=== PATIENT | female | born 1995 | race Caucasian/White ===

== ENCOUNTER 2020-07-29 20:56 | Emergency (ER) | payer SELFPAY ==
[2020-07-29 21:03] VITALS: BP 123/74; PULSE 100; RESP 16; TEMP 36.8; O2SAT 100; BMI 43.4
--- NOTE | 2020-07-29 21:19 | W.ED.GENADLT ---
HPI - General Adult General: Chief complaint: Fever Stated complaint: fever/n/v/d Time Seen by Provider: 07/29/20 21:13 History of Present Illness: HPI narrative: This pleasant young female said that she has had some nausea since 12:00 yesterday has had some diarrhea and vomited a couple times. Feeling better presently. Said her mom had something similar to this last week and her son had earlier this week. Patient also needs note for work. MD complaint: Diarrhea and nausea. Onset (ago): hour(s) Severity scale (1-10): 1 Associated symptoms: Reports nausea and vomiting; Deny chest pain, dyspnea, headache(s) or rash Review of Systems Const: Denies: fever(s), chills or body aches Eyes: Denies: change in vision or blurry vision ENMT: Denies: throat pain or nasal congestion Card: Denies: chest pain or dyspnea on exertion Resp: Denies: dyspnea, productive cough or non-productive cough GI: Reports: nausea, vomiting and diarrhea; Denies: abdominal pain Musc: Denies: extremity pain Skin/Breast: Denies: rash Neuro: Denies: headache(s) Psych: Denies: anxiety or depression Wilfrido/Lymph: Denies: easy bruising Physical Exam Const: COMMON NORMALS: no acute distress, average body habitus and patient oriented x3 HENMT: COMMON NORMALS: normocephalic HEAD & SCALP: normal to inspection and normocephalic FACE & SINUS: normal facial exam Eye: COMMON NORMALS: conjunctivae normal GENERAL EYE: appearance normal, both eyes and all related structures CONJUNCTIVA: Yes conjunctivae normal Neck/C-Spine: COMMON NORMALS: no JVD Chest: COMMONS NORMALS: normal inspection of the chest Resp: COMMON NORMALS: normal respiratory effort and clear to auscultation bilaterally AUSCULTATION: clear to auscultation bilaterally Cardio: COMMON NORMALS: no JVD, regular rate and regular rhythm RATE: regular rate RHYTHM: regular rhythm GI: COMMON NORMALS: Normal to inspection, nondistended, normoactive bowel sounds present Extremity: COMMON NORMALS: normal to inspection and full ROM Neuro: COMMON NORMALS: patient oriented x3 Course Vital Signs: Vital signs: Vital Signs Temperature 98.3 F 07/29/20 21:03 Pulse Rate 100 07/29/20 21:03 Respiratory Rate 16 07/29/20 21:03 Blood Pressure 123/74 07/29/20 21:03 Pulse Oximetry 100 07/29/20 21:03 Discharge Plan Discharge Patient Disposition: Home Clinical Impression: Gastroenteritis Condition: Stable Prescriptions: New Zofran 4 mg tablet 4 mg PO Q8H 3 Days Qty: 9 RF: 0 Discharge Orders: Discharge ED (Routine); Ordered 07/29/20 Ordered By: Niall Gibbs Discharge Diet: Advance as tolerated Discharge Activity: Increase activity as tolerated Patient Instructions: Gastroenteritis (ED) Activity Restrictions/Additional Instructions: Follow-up with medical provider as directed. Take medications as prescribed. Return to the ER or your medical provider if condition worsens. Please read and understand discharge instructions. If any questions ask please. Practice good handwashing technique. Stand Alone Forms: Work/School Release Coding Level of Care Code ED In Home Nanny for Lazaro Phoenix
[2020-07-29 21:45] VITALS: BP 132/72; PULSE 78; RESP 16; TEMP 36.7; O2SAT 97
[2020-07-29] MEDS: promethazine 25 mg/mL SDV 1 mL IM (22:05)
[2020-07-29] MEDS: loperamide 2 mg Capsule 4 MG PO (22:06)
[2020-07-29 22:07] VITALS: BP 128/68; PULSE 78; RESP 16; TEMP 36.7; O2SAT 96
== END 2020-07-29 21:55 | disposition home or self-care (01) ==
PROVIDERS: Emergency Provider Nurse Practitioner Family
DX: K52.9 Noninfective gastroenteritis and colitis, unspecified (principal)
CPT/HCPCS: 96372; 99283; J2550

== ENCOUNTER → 2021-06-16 11:53 | Outpatient (BNVA) | payer BC, SELFPAY | PROVIDERS: Visit Provider Nurse Practitioner Family | DX: R30.0 Dysuria (principal); N91.1 Secondary amenorrhea; N76.0 Acute vaginitis; B96.89 Other specified bacterial agents as the cause of diseases classified elsewhere; B37.9 Candidiasis, unspecified | CPT/HCPCS: 87491; 87591; 87661 ==

== ENCOUNTER 2021-07-26 21:27 | Emergency (ER) | payer BC, MEDICAID, SELFPAY ==
[2021-07-26 21:47] VITALS: BMI 46.0
[2021-07-26 21:51] VITALS: BP 129/85; PULSE 84; RESP 17; TEMP 37; O2SAT 97
[2021-07-26 22:23] LABS: HCG Qualitative Urine. Negative (Negative)
[2021-07-26 22:27] LABS: Add Urine Microscopic? YES; Bilirubin Urine Neg (Negative); Blood Urine 2+ (Negative); Glucose Urine UA Norm (Normal); Ketones Urine Negative (Negative); Leukocyte Esterase Urine Negative (Negative); Nitrate Urine Negative (Negative); Protein Urine Neg (Negative); Specific Gravity, Urine 1.025 (1.005-1.030); Urine Appearance Clear (CLEAR); Urine Color Yellow (Yellow); Urobilinogen Urine Norm (Negative); pH Urine 6 (5-7)
[2021-07-26 22:28] LABS: Add Urine Culture? No; Bacteria Urine TRACE /hpf; RBC Urine 0-4 /hpf (0-2); Squamous Epithelial Cell Urine 0-4 /hpf (0-5); WBC Urine 0-4 /hpf (0-5)
[2021-07-26] MEDS: pantoprazole DR 40 mg Tablet PO (23:09)
--- NOTE | 2021-07-31 08:38 | ED_ITS ---
HPI - Abdominal Pain General: Chief Complaint: Abdominal Pain Stated Complaint: abd pain, n/v Time Seen by Provider: 07/26/21 22:47 History of Present Illness: Patient with a history of reflux comes in with upper epigastric pain that is been going on for a few months. Not related to diet. Has taken htoi-[id number]-[id number] reflux medication with some relief. Denies any fever chills nausea or vomiting. Associated Symptoms: Reports heartburn; Denies chills, fever(s), nausea and vomiting Related Data: Date of Last Menstrual Period: 07/14/21 Review of Systems Const: Denies: fever(s), chills or body aches Eyes: Denies: eye discomfort ENMT: Denies: throat pain Card: Denies: chest pain Resp: Denies: dyspnea GI: Reports: heartburn; Denies: abdominal pain, nausea or vomiting Skin/Breast: Denies: rash Neuro: Denies: headache(s) Psych: Denies: depression or suicidal ideation [facility] ED Female Reproductive History: Date of last menstrual period: 07/14/21 Physical Exam Const: COMMON NORMALS: no acute distress, patient oriented x3 and alert HENMT: COMMON NORMALS: normocephalic and external ears normal HEAD & SCALP: normocephalic EXTERNAL EAR: Yes external ears normal Eye: COMMON NORMALS: EOMs intact bilaterally Neck/C-Spine: COMMON NORMALS: no JVD Resp: COMMON NORMALS: normal respiratory effort and No use of accessory muscles Cardio: COMMON NORMALS: no JVD GI: INSPECTION: Yes normal to inspection Extremity: COMMON NORMALS: normal to inspection and full ROM Neuro: COMMON NORMALS: patient oriented x3 SENSORIUM/ORIENTATION: Yes alert Psych: COMMON NORMALS: mental status grossly normal Skin: COMMON NORMALS: no rashes or lesions noted GENERAL SKIN EXAM: no rashes or lesions noted Course Vital Signs: Vital signs: Vital Signs Temperature 98.6 F 07/26/21 21:51 Pulse Rate 84 07/26/21 21:51 Respiratory Rate 17 07/26/21 21:51 Blood Pressure 129/85 07/26/21 21:51 Pulse Oximetry 97 07/26/21 21:51 MDM - Abdominal Pain Medical Decision Making Patient with upper epigastric pain. Patient has a history of this and has taken some dget-ewg-vaedopb medications as helped in past. Patient not acutely ill presently this pains been going on sporadically for months. Patient was given a trial GI cocktail and that helped tremendously. Patient was provided prescription for 4 weeks Protonix follow-up as follow-up primary care provider. Lab Data Labs/Radiology: Laboratory Results HCG, Qual Negative (Negative) 07/26/21 22:00 Urine Color Yellow (Yellow) 07/26/21 22:00 Urine Appearance Clear (CLEAR) 07/26/21 22:00 Urine pH 6 (5-7) 07/26/21 22:00 Ur Specific [place] 1.025 (1.005-1.030) 07/26/21 22:00 Urine Protein Neg (Negative) 07/26/21 22:00 Urine Glucose (UA) Norm (Normal) 07/26/21 22:00 Urine Ketones Negative (Negative) 07/26/21 22:00 Urine Blood 2+ (Negative) H 07/26/21 22:00 Urine Nitrate Negative (Negative) 07/26/21 22:00 Urine Bilirubin Neg (Negative) 07/26/21 22:00 Urine Urobilinogen Norm mg/dL (Negative) 07/26/21 22:00 Ur Leukocyte Esterase Negative (Negative) 07/26/21 22:00 Urine RBC 0-4 /hpf (0-2) H 07/26/21 22:00 Urine WBC 0-4 /hpf (0-5) H 07/26/21 22:00 Ur Squamous Epith Cells 0-4 /hpf (0-5) H 07/26/21 22:00 Amorphous Sediment Not Reportable 07/26/21 22:00 Urine Bacteria Trace /hpf (NONE) 07/26/21 22:00 Discharge Plan Discharge Patient Disposition: Home Clinical Impression: Gastritis Condition: Stable Prescriptions: New Protonix 40 mg tablet,delayed release (DR/EC) 40 mg PO DAILY 28 Days Qty: 30 0RF No Action metronidazole 500 mg tablet 500 mg PO BID 7 Days Qty: 14 0RF clindamycin HCl 300 mg capsule 300 mg PO BID 7 Days Qty: 14 0RF fluconazole [Diflucan] 150 mg tablet 150 mg PO DAILY 7 Days Qty: 7 0RF Discharge Orders: Discharge ED (Routine); Ordered 07/26/21 Ordered By: Niall Gibbs Discharge Diet: Usual diet Discharge Activity: Resume usual activity Activity Restrictions/Additional Instructions: Follow-up with medical provider as directed. Take medications as prescribed. Return to the ER or your medical provider if condition worsens. Please read and understand discharge instructions. If any questions ask please. Coding Level of Care Code ED Compound [employer] Offbearer for Lazaro Phoenix
== END 2021-07-26 23:10 | disposition home or self-care (01) ==
PROVIDERS: Emergency Provider Nurse Practitioner Family
DX: K29.70 Gastritis, unspecified, without bleeding (principal)
CPT/HCPCS: 81001; 81025; 99282

== ENCOUNTER → 2022-07-21 08:30 | Outpatient (BNVA) | payer BC, MEDICAID, SELFPAY | PROVIDERS: Visit Provider Nurse Practitioner Women's Health | DX: Z32.00 Encounter for pregnancy test, result unknown (principal) | CPT/HCPCS: 81000; 81025 ==

== ENCOUNTER → 2022-08-03 09:39 | Outpatient (BNVA) | payer BC, MEDICAID, SELFPAY | PROVIDERS: Visit Provider Obstetrics & Gynecology | DX: Z34.90 Encounter for supervision of normal pregnancy, unspecified, unspecified trimester (principal) | CPT/HCPCS: 76817; 80307; 81000; 86850; 86900; 87086 ==

== ENCOUNTER → 2022-08-24 09:22 | Outpatient (BNVA) | payer BC, MEDICAID, SELFPAY | PROVIDERS: Visit Provider Obstetrics & Gynecology | DX: O36.4XX0 Maternal care for intrauterine death, not applicable or unspecified (principal); Z3A.00 Weeks of gestation of pregnancy not specified | CPT/HCPCS: 76817 ==

== ENCOUNTER 2022-08-26 12:24 | Day surgery (SDC) | payer BC, MEDICAID, SELFPAY ==
[2022-08-25 15:45] VITALS: BMI 42.5
[2022-08-26 13:22] VITALS: BP 135/86; PULSE 76; RESP 18; TEMP 36.1; O2SAT 99
[2022-08-26] MEDS: sodium chloride 0.9% 1,000 ML 30 ML IV (13:35)
--- NOTE | 2022-08-26 13:47 | W.PM.OPSUD ---
Surgery/Procedure H&P Update DATE OF PROCEDURE: August 26, 2022 DATE H&P PERFORMED: 08/24/22 CHANGES TO PREVIOUS DOCUMENTATION: none PREOP DIAGNOSIS: incomplete spontaneous PLANNED PROCEDURE: Operation Date: 08/26/22 14:55 Proposed Procedures p Dilation and curettage with suction 19653,O02.1- Inpatient(Not Applicable) - Rodolfo Herbert MD
--- NOTE | 2022-08-26 14:35 | ANES.PREANE2 ---
Pre-Anesthetic Assessment Height/Weight: Height 1.6 m Weight 108.862 kg Temp Pulse Resp BP Pulse Ox O2 Del Method 96.9 F L 76 18 135/86 99 Room Air 08/26/22 13:22 08/26/22 13:22 08/26/22 13:22 08/26/22 13:22 08/26/22 13:22 08/26/22 13:22 Preop Diagnosis: incomplete spontaneous Operation Date: 08/26/22 14:55 Proposed Procedures p Dilation and curettage with suction 73925,O02.1- Inpatient(Not Applicable) - Rodolfo Herbert MD Familial anesthetic complications: none Was Beta Tom taken within 24 hours: N/A Was Clonidine taken within 24 hours: N/A Last intake: Intake Last Liquid Date 08/26/22 Last Liquid Time 10:00 Last Solid Date 08/25/22 Last Solid Time 16:00 Social Tobacco and No alcohol Exam alert, oriented x 3 and regular rate & rhythm Airway Submandibular: within normal limits Cervical ROM: within normal limits Mallampati: Class II Dentition: chipped and loose Comments: Comments: Very poor dentition Pulmonary Chronic Obstructive Pulmonary Disease Metabolic Morbid Obesity Anesthetic Plan ASA status: 2 Anesthesia: General Medications/Allergies Home Medications Medication Instructions Recorded Confirmed Last Taken Type No Known Home Medications 08/24/22 08/25/22 Unknown History Allergies Allergy/AdvReac Type Severity Reaction Status Date / Time cephalexin Allergy ALGY-Hives Verified 08/25/22 15:45 Penicillins Allergy ALGY-Hives Verified 08/25/22 15:45 Current Medications Generic Name Dose Route Start Last Admin Trade Name Rei PRN Reason Stop Dose Admin Sodium Chloride 1,000 mls @ 30 mls/hr 08/26/22 13:15 08/26/22 13:35 Sodium Chloride 0.9% IV 08/27/22 13:14 30 mls/hr .Q24H ELIAS Administration PFSH Anesthesia Family History Family/Other Diabetes Denies family history of Cervical cancer Colon cancer Ovarian cancer Breast cancer Hypertension Uterine cancer Thyroid disease Stroke Female Reproductive History Date of last menstrual period: 04/14/22 Data Anesthesia Cardiac Studies: No Data to Display
[2022-08-26 14:59] VITALS: BP 146/80; PULSE 86; RESP 17; TEMP 36.1; O2SAT 99
[2022-08-26 15:05] VITALS: BP 132/78; PULSE 85; RESP 15; O2SAT 95
[2022-08-26 15:10] VITALS: BP 141/84; PULSE 84; RESP 18; O2SAT 95
[2022-08-26 15:15] VITALS: BP 122/82; PULSE 81; RESP 18; TEMP 36.1; O2SAT 93
[2022-08-26 15:43] VITALS: BP 148/78; PULSE 82; RESP 18; O2SAT 92
--- NOTE | 2022-08-26 16:56 | ANE.PACU2 ---
Inpatient post-anesthesia follow up: Airway intact: Yes Vital signs: Temperature 97 F Pulse Rate 82 Respiratory Rate 18 Blood Pressure 148/78 Pulse Oximetry 92 Oxygen Delivery Me thod Room Air Oxygen Flow Rate 6 Fraction of Inspir ed Oxygen Hydration adequate: Yes Nausea and vomiting: No Pain level: 3 Mental status: Baseline
--- NOTE | 2022-09-02 02:25 | PM.OP ---
Operative Report Date of procedure: August 26, 2022 Pre-op diagnosis: Preop Diagnosis incomplete spontaneous Post-op diagnosis: same Post-op diagnosis: same Post-op findings: products of conception Procedure done: suction D&C of uterus Specimens removed/disposition: products of conception Surgeon: Rodolfo Herbert MD Anesthesia: MAC Estimated blood loss (mL): 100 Complications: none Brief History: 26 y.o. with incomplete spontaneous , failed cytotec induction x two doses Procedure: Informed consent signed The patient was taken to the operating room. General anesthesia was induced. The patient was placed in dorsolithotomy position. The perineum was prepped and draped in the usual fashion. A bivalve speculum was placed in the vagina. The anterior lip of the cervix was grasped with a sharp-toothed tenaculum. The uterus was sounded to 11 cm. The cervix was serially dilated with Hegar dilators. A #9 curved suction curette was used to empty the contents of the uterus. Products of conception were obtained and sent to pathology. A sharp curette, followed again by the suction curette, were used to evacuate the uterus. No bleeding was seen. All instruments were then removed from the uterus, cervix and vagina. No bleeding was seen from the cervix. The patient was then placed supine, awakened, and taken to the recovery room. Postop condition: stable EBL: 100 cc Complications: none Sponge/instruments counts correct x two
== END 2022-08-26 16:15 | disposition home or self-care (01) ==
PROVIDERS: PCP Nurse Practitioner Family; Visit Provider Obstetrics & Gynecology
PROC: (CPT 59812; principal; 2022-08-26 14:45)
DX: O03.4 Incomplete spontaneous abortion without complication (principal); J44.9 Chronic obstructive pulmonary disease, unspecified
CPT/HCPCS: 59812; 88305; J1100; J1200; J2250; J2405; J2704; J3010; J7030

== ENCOUNTER → 2022-12-14 09:41 | Outpatient (BNVA) | payer MEDICAID, SELFPAY | PROVIDERS: PCP Nurse Practitioner Family; Visit Provider Nurse Practitioner Family | DX: E66.01 Morbid (severe) obesity due to excess calories (principal); K04.7 Periapical abscess without sinus; K12.0 Recurrent oral aphthae; E75.5 Other lipid storage disorders | CPT/HCPCS: 80053; 80061 ==

== ENCOUNTER → 2023-06-14 11:21 | Outpatient (BNVA) | payer MEDICAID, SELFPAY | PROVIDERS: PCP Nurse Practitioner Family; Visit Provider Nurse Practitioner Family | DX: F41.9 Anxiety disorder, unspecified (principal); R53.83 Other fatigue; F32.9 Major depressive disorder, single episode, unspecified; E66.01 Morbid (severe) obesity due to excess calories | CPT/HCPCS: 80053; 80061; 83550; 84443; 85025 ==

== ENCOUNTER → 2024-02-20 15:51 | Outpatient (BNVA) | payer BC, SELFPAY | PROVIDERS: Visit Provider Nurse Practitioner Family | DX: R19.7 Diarrhea, unspecified (principal) | CPT/HCPCS: 87493 ==

== ENCOUNTER 2025-01-22 12:19 | Outpatient (CLI) | payer BC, MEDICAID, SELFPAY ==
--- NOTE | 2025-01-22 12:25 | XRR_ITS ---
PROCEDURE INFORMATION: Exam: XR Lumbosacral Spine Exam date and time: 01/22/2025 12:31 PM Age: 29 years old Clinical indication: Dorslagia; Few months pain in lower back intermittent pain down legs, no specific injury; Additional info: M54.9 - dorsalgia, unspecified TECHNIQUE: Imaging protocol: Radiologic exam of the lumbosacral spine. Views: 2 or 3 views. COMPARISON: No relevant prior studies available. FINDINGS: Bones/joints: Five uer-udf-mhyvikd lumbar vertebral bodies are present. No displaced fractures with preserved vertebral body heights. No subluxation. Mild disc space narrowing at L5/S1 and in the lower thoracic spine. Probable mild facet joint osteoarthritis at L5/S1. Soft tissues: Unremarkable. XR/XR lumbar spine 2-3V* [id number] IMPRESSION: 1. No displaced fracture or subluxation in the lumbar spine. 2. Mild degenerative changes at L5/S1 and in the lower thoracic spine.
== END 2025-01-22 12:20 | disposition home or self-care (01) ==
LOC: RAD 12:21
PROVIDERS: PCP Nurse Practitioner Family; Visit Provider Nurse Practitioner Family
DX: M51.17 Intervertebral disc disorders with radiculopathy, lumbosacral region (principal)
CPT/HCPCS: 72100

== ENCOUNTER → 2025-01-29 10:04 | Outpatient (BNVA) | payer BC, MEDICAID, SELFPAY | PROVIDERS: PCP Nurse Practitioner Family; Visit Provider Podiatrist Foot & Ankle Surgery | DX: L84 Corns and callosities (principal); Q82.8 Other specified congenital malformations of skin | CPT/HCPCS: 73620; 73630 ==

== ENCOUNTER → 2025-02-06 15:14 | Outpatient (BNVA) | payer BC, MEDICAID, SELFPAY | PROVIDERS: PCP Nurse Practitioner Family; Visit Provider Nurse Practitioner Family | DX: N92.6 Irregular menstruation, unspecified (principal) | CPT/HCPCS: 81025 ==

== ENCOUNTER → 2025-02-14 09:07 | Outpatient (BNVA) | payer BC, MEDICAID, SELFPAY | PROVIDERS: PCP Nurse Practitioner Family; Visit Provider Obstetrics & Gynecology | DX: N91.1 Secondary amenorrhea (principal); N91.2 Amenorrhea, unspecified | CPT/HCPCS: 80053; 81025; 84146; 84443; 85025 ==

== ENCOUNTER → 2025-03-07 11:27 | Outpatient (BNVA) | payer BC, MEDICAID, SELFPAY | PROVIDERS: PCP Nurse Practitioner Family; Visit Provider Obstetrics & Gynecology | DX: N97.9 Female infertility, unspecified (principal); N91.2 Amenorrhea, unspecified | CPT/HCPCS: 76830 ==